=== PATIENT | female | born 1955 | race Caucasian/White ===

== ENCOUNTER 2025-06-14 11:19 | Emergency (ER) | payer MEDICARE ==
[~2025-06-14] VITALS: Ht 157.5 cm; Wt 67.1 kg
[2025-06-14 14:54] VITALS: PULSE 87; RESP 15; TEMP 98.4; O2SAT 99
== END 2025-06-14 15:00 | disposition home or self-care (01) ==
LOC: ER 11:26
DX: M25.562 Pain in left knee (principal); M25.561 Pain in right knee; S80.02XA Contusion of left knee, initial encounter; S80.01XA Contusion of right knee, initial encounter; M25.552 Pain in left hip; M25.551 Pain in right hip; M54.50 Low back pain, unspecified; W01.0XXA Fall on same level from slipping, tripping and stumbling without subsequent striking against object, initial encounter; Y93.01 Activity, walking, marching and hiking; Y92.89 Other specified places as the place of occurrence of the external cause
CPT/HCPCS: 72131; 73522; 99283